=== PATIENT | female | born 1995 | race Caucasian/White ===

== ENCOUNTER 2023-07-10 03:19 | Emergency (ER) | payer OTHER, SELFPAY ==
[2023-07-10 03:21] VITALS: BP 126/88
--- NOTE | 2023-07-10 03:37 | ED.GENMED ---
Addendum entered and electronically signed by Vidal Carrera DO 07/10/23 05:18:
Update patient resting comfortly
States she is feeling better
Original Note:
History of Present Illness
<Marvel Justen SEGUN - Last Filed: 07/10/23 05:01>
General
Chief Complaint: Chest Pain
Source: patient and significant other
Exam Limitations: none
Time Seen by Provider: 07/10/23 03:36
Nursing documentation reviewed up to this point in time: agreed with
Travel History
Have you had any contact with someone who has COVID-19?: No
Do you have any symptoms of coronavirus? Fever > 100 degrees, chills, cough, shortness of breath, sore throat, loss of taste or smell, muscle aches, or headache?: No
History of Present Illness
History of Present Illness:
This is a 27 year old female with a PMH of abortions and anxiety, who reports to the ED c/o CP x couple hours. Pt states she has been very stressed recently since having an 2 weeks ago. Pt states she was drinking alcohol tonight (around 10
shots) and smoke weed and then began having constant CP. She states she had an argument with her partner prior to the pain starting. Her partner also states she passed out briefly and spit up. She states the pain is a constant 4/10 in severity and
occasionally she gets a shooting pain that is a 9/10 in severity. The pain radiates to her left arm. She states since having the , she has not been herself. She lost around 3 'pints' of blood and has been weak, dizzy and unable to walk/talk.
When she stands, she feels as though she is going to pass out. She saw her doctor this morning who recommended a D&C for the residual clots in her uterus, but pt opted to wait until her next period. She denies any jaw pain, n/v, diarrhea,
constipation, fever, stool changes, dysuria, or reflux.
Pt is currently taking iron and potassium pills. She denies any allergies. She drinks alcohol, smokes cigarettes (anywhere up to a pack a day), and smokes weed daily.
Past History
<DAVE Camarillo - Last Filed: 07/10/23 05:01>
Past History
ED Past Medical History: Psychiatric (anxiety) and Other (3 abortions)
ED Past Surgical History: Tonsilectomy and Other (Peritonsillar abscess drainage)
Patient has exhibited threatening behavior?: No
Social History
Tobacco: Smoker
Alcohol: Occasional
Drug: Marijuana (Occasional)
Personal: Single
Living: with family
Employment: Employed (At a restaurant)
Family History
Family History: Other (Father with acute appendicitis otherwise noncontributory)
Review of Systems
<DAVE Camarillo - Last Filed: 07/10/23 05:01>
Review of Systems
Allergies reviewed?: Yes
Other source history: family
Constitutional: Reports chills; Denies fever
EENT: Reports no symptoms
Respiratory: Reports trouble breathing; Denies cough
Cardiac: Reports chest pain, palpitations and syncope
ABD/GI: Reports no symptoms; Denies abdominal pain, nausea, vomiting, diarrhea or constipated
: Reports other (vaginal bleeding); Denies dysuria or bleeding
Musculoskeletal: Reports no symptoms
Skin: Reports no symptoms
Neurological: Reports dizzy and headache
Psychiatric: Reports anxiety
Phy Exam
<DAVE Camarillo - Last Filed: 07/10/23 05:01>
General Physical Exam
General Presentation: mild distress
General age: appears stated age
General Skin: warm and dry
General Habitus: normal
General Mental: alert
General Hydration: appears well hydrated
ENT Exam
ENT Exam: normocephalic
Eye Exam
Eye Exam: PERRL and conjunctiva normal
Cardiovascular Exam
Cardiovascular Exam: regular rate/rhythm, no edema, no murmur and normal peripheral pulses
Heart Sounds: normal
Pulmonary Exam
Pulmonary Exam: lungs clear, no respiratory distress, no rales, no crackles and no wheezing
Oxygen Status: room air
Cough: no cough
Gastrointestinal Exam
Gastrointestinal Exam: normal bowel sounds, non tender, soft and non distended
Palpation: generalized: No tenderness
Auscultation of Abdomen: normal
Neurological Exam
Neurological Exam: alert and oriented x3
Musculoskeletal Exam
Musculoskeletal Exam: full ROM and no edema
Skin Exam
Skin Exam: warm/dry and pallor
Psychiatric Exam
Psychiatric Exam: anxious
Scores
<DAVE Camarillo - Last Filed: 07/10/23 05:01>
Heart Score for Chest Pain Patients
STEMI patient?: Not applicable
Course
<DAVE Camarillo - Last Filed: 07/10/23 05:01>
Orders/Labs/Results
Orders:
Orders
07/10/23 03:38
EKG [Electrocardiogram (*1)] Urgent
Reason for Study: Chest Pain
EKG- Treatment ONCE
07/10/23 04:04
Complete Blood Count/With Diff Urgent
Comprehensive Metabolic Panel Urgent
07/10/23 04:07
Troponin I Urgent
07/10/23 04:16
0.9% Sodium Chloride 1000 ml [Nss] 1,000 ml IV BOLUS
Ketorolac [Toradol] 30 mg IV NOW STA
Abnormal Lab Results
07/10/23
04:04
RBC 3.06 L 10^6/uL
(4.20-5.40)
Hgb 10.1 L g/dL
(12.0-16.0)
Hct 27.6 L %
(37.0-47.0)
MCH 33.0 H pg
(27.0-31.0)
Immature Gran % 0.6 H %
(0-0.5)
Creatinine 0.5 L mg/dL
(0.6-1.0)
07/10/23 04:04
07/10/23 04:04
Vital Signs
Initial and Last Documented VS:
Initial Vital Signs
Temp Pulse Resp BP Pulse Ox
98.5 F 100 17 126/88 98
07/10/23 03:21 07/10/23 03:21 07/10/23 03:21 07/10/23 03:21 07/10/23 03:21
Last Documented Vital Signs
Temp Pulse Resp BP Pulse Ox
98.5 F 100 17 126/88 98
07/10/23 03:21 07/10/23 03:21 07/10/23 03:21 07/10/23 03:21 07/10/23 03:21
<Vidal Carrera, DO - Last Filed: 07/10/23 05:05>
Orders/Labs/Results
Orders:
Orders
07/10/23 03:38
EKG [Electrocardiogram (*1)] Urgent
Reason for Study: Chest Pain
EKG- Treatment ONCE
07/10/23 04:04
Complete Blood Count/With Diff Urgent
Comprehensive Metabolic Panel Urgent
07/10/23 04:07
Troponin I Urgent
07/10/23 04:16
0.9% Sodium Chloride 1000 ml [Nss] 1,000 ml IV BOLUS
Ketorolac [Toradol] 30 mg IV NOW STA
Abnormal Lab Results
07/10/23
04:04
RBC 3.06 L 10^6/uL
(4.20-5.40)
Hgb 10.1 L g/dL
(12.0-16.0)
Hct 27.6 L %
(37.0-47.0)
MCH 33.0 H pg
(27.0-31.0)
Immature Gran % 0.6 H %
(0-0.5)
Creatinine 0.5 L mg/dL
(0.6-1.0)
07/10/23 04:04
07/10/23 04:04
Vital Signs
Initial and Last Documented VS:
Initial Vital Signs
Temp Pulse Resp BP Pulse Ox
98.5 F 100 17 126/88 98
07/10/23 03:21 07/10/23 03:21 07/10/23 03:21 07/10/23 03:21 07/10/23 03:21
Last Documented Vital Signs
Temp Pulse Resp BP Pulse Ox
98.5 F 100 17 126/88 98
07/10/23 03:21 07/10/23 03:21 07/10/23 03:21 07/10/23 03:21 07/10/23 03:21
<DAVE Camarillo - Last Filed: 07/10/23 05:01>
*Critical Care Note
Total Time (30-74mins, 75-104mins- exclusive of procedures): Not Applicable
<Vidal Carrera DO - Last Filed: 07/10/23 05:05>
Update Note
Update Note:
Update labs are noted, patient remained stable
ED Attending Note
<DAVE Camarillo - Last Filed: 07/10/23 05:01>
-
Portions of this chart may have been created with voice recognition software.� Occasional wrong word or��sound alike� substitutions may have occurred due to the inherent limitations of voice recognition software.
<Vidal Carrera DO - Last Filed: 07/10/23 05:05>
ED Attending Note
Patient seen and examined by attending physician: Yes
I performed the substantive portion of visit, reviewed & personally made and approve the management plan that is documented in note by myself or JIMMY.: Yes
ED Attending Note:
Seen with student examined independently 27-year-old female 2 weeks status post medical subsequently had a syncopal event seen at [facility] hemoglobin is 9 discharged to home maira had a panic attack had multiple shots of whiskey a smoke
marijuana some sharp pain, feeling better now she already has a therapist that she is getting set up with her insurance EKG noted no tachypnea or tachycardia
Discharge Plan
Departure
Patient Disposition: Home (Routine Discharge)
Date of Disposition: 07/10/23
Time of Disposition: 05:03
Patient with high blood pressure during this ER visit?: No
Condition: Good
Covid-19: Not Applicable
Discharge Problem:
Panic attack, Chest pain
Instructions: Chest Pain PCP Follow Up
Prescriptions:
New
ibuprofen 600 mg tablet
600 mg PO Q8H PRN (Reason: fever or pain) Qty: 20 0RF
No Action
omeprazole 20 mg Capsule,Delayed Release(Dr/Ec)
20 mg PO DAILY PRN (Reason: GERD)
doxylamine-pyridoxine (vit B6) [Diclegis] 10-10 mg tablet,delayed release (DR/EC)
1 tab PO DAILY Qty: 20 0RF
Rx Instructions:
2 tab PO qhs, then 1 tab PO qAM if vomiting persists
Referrals:
Lenny Alberts MD [Family Provider] - Next open appointment
Interventions
Interventions:
*Risk Screen - Suicide Last Done: 07/10/23 03:21
*General Assessment Last Done: 07/10/23 03:21
*Neglect/Abuse Screening Last Done: 07/10/23 03:21
ED- Fall Risk Assessment Last Done: 07/10/23 03:21
*ED COVID-19 Vaccine History Last Done: 07/10/23 03:21
ED- Cardiac Assessment Last Done: 07/10/23 03:52
[2023-07-10 03:56] VITALS: BMI 19.1
[2023-07-10 04:13] LABS: % Basophils 0.4 % (0-2); % Eosinophils 3.7 % (0-6); % Immature Granulocytes 0.6 % (0-0.5); % Lymphocytes 24.6 % (20.5-51.1); % Monocytes 7.7 % (1.7-9.3); Absolute Eosinophils 0.3 10^3/uL (0-0.7); Absolute Lymphocytes 1.7 10^3/uL (1.2-3.4); Absolute Monocytes 0.5 10^3/uL (0.1-0.6); Absolute Neutrophils 4.4 10^3/uL (1.4-6.5); Hematocrit 27.6 % (37.0-47.0); Hemoglobin 10.1 g/dL (12.0-16.0); Mean Corp Hgb Conc. 36.6 g/dL (33.0-37.0); Mean Corpuscular Volume 90.2 fL (81.0-99.0); Mean Platelet Volume 8.9 fL (7.4-10.4); Nucleated Red Blood Cells % 0 %; Platelet Count 298 10^3/uL (130-400); Red Blood Cell Count 3.06 10^6/uL (4.20-5.40); Red Cell Dist. Width 12.4 % (11.5-14.5)
[2023-07-10] MEDS: TORADOL 30 MG IV (04:30)
[2023-07-10 04:31] LABS: ALT (SGPT) 14 U/L (0-35); AST (SGOT) 24 U/L (14-36); Albumin 4.1 g/dl (3.5-5.0); Alkaline Phosphatase 53 U/L (38-126); Blood Urea Nitrogen 8 mg/dl (7-17); Carbon Dioxide 22 mmol/L (22-30); Chloride 105 mmol/L (98-107); Estimated Creatinine Clearance 114 ml/min; Glucose 91 mg/dl (70-99); Potassium 3.8 mmol/L (3.5-5.1); Sodium 140 mmol/L (135-145); Total Bilirubin 0.7 mg/dl (0.2-1.3); Total Protein 6.9 g/dl (6.3-8.2); eGFR > 60.00
[2023-07-10] MEDS: NSS 1000 IV (04:31)
[2023-07-10 04:42] LABS: Troponin I < 0.012 ng/ml
[2023-07-10 05:00] VITALS: BP 121/80
== END 2023-07-10 05:42 | disposition home or self-care (01) ==
LOC: EMR 03:19
PROVIDERS: EMERGENCY PHYSICIAN Emergency Medicine; FAMILY PHYSICIAN Family Medicine
DX: F41.0 Panic disorder [episodic paroxysmal anxiety] (principal); R07.89 Other chest pain; F41.9 Anxiety disorder, unspecified; F17.210 Nicotine dependence, cigarettes, uncomplicated
CPT/HCPCS: 99284; 96374; 80053; 84484; 85025; 93005

== ENCOUNTER 2024-01-23 15:25 | Emergency (ER) | payer OTHER, SELFPAY ==
[2024-01-23 15:28] VITALS: BP 120/80
[2024-01-23] MEDS: NSS 500 IV (18:31)
[2024-01-23] MEDS: TYLENOL 650 MG PO (18:33)
[2024-01-23 18:34] VITALS: BP 137/79
[2024-01-23 18:36] LABS: % Basophils 0.5 % (0-2); % Eosinophils 4.7 % (0-6); % Immature Granulocytes 0.2 % (0-0.5); % Lymphocytes 25.7 % (20.5-51.1); % Monocytes 8.1 % (1.7-9.3); % Neutrophils 60.8 % (42.2-75.2); Absolute Eosinophils 0.3 10^3/uL (0-0.7); Absolute Lymphocytes 1.7 10^3/uL (1.2-3.4); Absolute Monocytes 0.5 10^3/uL (0.1-0.6); Absolute Neutrophils 4.1 10^3/uL (1.4-6.5); Hematocrit 31.8 % (37.0-47.0); Hemoglobin 11.1 g/dL (12.0-16.0); Mean Corp Hgb Conc. 34.9 g/dL (33.0-37.0); Mean Corpuscular Hgb 29.4 pg (27.0-31.0); Mean Corpuscular Volume 84.4 fL (81.0-99.0); Mean Platelet Volume 9.6 fL (7.4-10.4); Nucleated Red Blood Cells % 0 %; Platelet Count 222 10^3/uL (130-400); Red Blood Cell Count 3.77 10^6/uL (4.20-5.40); White Blood Cell Count 6.7 10^3/uL (4.8-10.8)
[2024-01-23 18:57] LABS: ALT (SGPT) 15 U/L (0-35); AST (SGOT) 37 U/L (14-36); Albumin 4.1 g/dl (3.5-5.0); Alkaline Phosphatase 50 U/L (38-126); Blood Urea Nitrogen 15 mg/dl (7-17); Carbon Dioxide 24 mmol/L (22-30); Chloride 106 mmol/L (98-107); Glucose 102 mg/dl (70-99); Potassium 4.2 mmol/L (3.5-5.1); Sodium 140 mmol/L (135-145); Total Bilirubin 0.8 mg/dl (0.2-1.3); Total Protein 6.5 g/dl (6.3-8.2); eGFR > 60.00
[2024-01-23 19:00] VITALS: BP 123/84; BMI 26.5
[2024-01-23 19:00] LABS: Troponin I < 0.012 ng/ml
--- NOTE | 2024-01-23 19:28 | ED.GENMED ---
History of Present Illness
<Tye Medellin MD, Resident - Last Filed: 01/23/24 19:54>
General
Chief Complaint: Fainting Sensation
Time Seen by Provider: 01/23/24 16:28
History of Present Illness
History of Present Illness:
28-year-old female, Ms. Daniella Concepcion presented to the ER reporting an episode of lightheadedness in the morning today when she was fishing. Patient reports that she felt dizzy for a period of 1-2 hra, accompanied with blurry vision and ringing
sensation in the ears. She felt very tired and has headache with nausea but no vomiting. Patient also reports having chest pain, SOB, palpitations since 2 weeks, occurring intermittently and worse with the physical activity. Patient also reports
that yesterday she had a nosebleed for 2 minutes and it has subsided after she pinched her nose for few minutes. No history of fevers, abdominal pain, bladder/bowel disturbances. Patient reports that she had blood work and EKG done 2 weeks ago by
her primary care physician.
Past History
<Tye Medellin MD, Resident - Last Filed: 01/23/24 19:54>
Past History
ED Past Medical History: Psychiatric (anxiety) and Other (3 abortions)
ED Past Surgical History: Tonsilectomy and Other (Peritonsillar abscess drainage)
Patient has exhibited threatening behavior?: No
Social History
Tobacco: Smoker
Alcohol: Occasional
Drug: Marijuana (Occasional)
Personal: Single
Living: with family
Employment: Employed (At a restaurant)
Family History
Family History: Other (Father with acute appendicitis otherwise noncontributory)
Review of Systems
<Tye Medellin MD, Resident - Last Filed: 01/23/24 19:54>
Review of Systems
All Other Systems: ROS reviewed and negative except as documented in HPI and ROS
Phy Exam
<Tye Medellin MD, Resident - Last Filed: 01/23/24 19:54>
Physical Exam
Physical Exam:
GEN: Well appearing, NAD, WDWN
Eyes: PERRLA, EOMs intact, no scleral icterus
HENT: NCAT, oral mucosa moist, no JVD, no cervical adenopathy.
Lungs: CTAB, no wheezes, rales, rhonchi, normal chest wall excursion
Cardiac: RRR, no M/R/G, no peripheral edema. Radial pulses 2+ bilat
Abdomen: S, NT, ND, NABS, no masses or hepatosplenomegaly
Neuro: AO x 3, no focal deficits to BUE/BLE, normal sensation throughout, cranial nerves II to XII intact.
Skin: No rashes, petechiae. Normal color, no pallor or jaundice.
Psych: Calm, cooperative, proper hygiene
Course
<Tye Medellin MD, Resident - Last Filed: 01/23/24 19:54>
Orders/Labs/Results
Orders:
Orders
01/23/24 15:29
EKG [Electrocardiogram (*1)] Urgent
Reason for Study: Fatigue / Weakness
EKG- Treatment ONCE
01/23/24 17:12
0.9% Sodium Chloride 500 ml [Nss] 500 ml IV BOLUS
Acetaminophen [Tylenol] 650 mg PO NOW STA
01/23/24 17:13
CR Chest - 2 Views Urgent
Comment:
Reason For Exam: chest pain
01/23/24 18:31
Complete Blood Count/With Diff Urgent
Comprehensive Metabolic Panel Urgent
HCG, Serum Qualitative Screen Urgent
Troponin I Urgent
01/23/24 19:47
Add On- LAB Urgent
Tests Added?: hcg
Abnormal Lab Results
01/23/24
18:31
RBC 3.77 L 10^6/uL
(4.20-5.40)
Hgb 11.1 L g/dL
(12.0-16.0)
Hct 31.8 L %
(37.0-47.0)
Glucose 102 H mg/dl
(70-99)
AST 37 H U/L
(14-36)
01/23/24 18:31
01/23/24 18:31
Vital Signs
Initial and Last Documented VS:
Initial Vital Signs
Temp Pulse Resp BP Pulse Ox
98.7 F 92 16 120/80 99
01/23/24 15:28 01/23/24 15:28 01/23/24 15:28 01/23/24 15:28 01/23/24 15:28
Last Documented Vital Signs
Temp Pulse Resp BP Pulse Ox
97.6 F 77 20 121/85 98
01/23/24 20:09 01/23/24 20:09 01/23/24 20:09 01/23/24 20:09 01/23/24 20:20
<Casimiro Ashby MD - Last Filed: 01/23/24 22:18>
Orders/Labs/Results
Orders:
Orders
01/23/24 15:29
EKG [Electrocardiogram (*1)] Urgent
Reason for Study: Fatigue / Weakness
EKG- Treatment ONCE
01/23/24 17:12
0.9% Sodium Chloride 500 ml [Nss] 500 ml IV BOLUS
Acetaminophen [Tylenol] 650 mg PO NOW STA
01/23/24 17:13
CR Chest - 2 Views Urgent
Comment:
Reason For Exam: chest pain
01/23/24 18:31
Complete Blood Count/With Diff Urgent
Comprehensive Metabolic Panel Urgent
HCG, Serum Qualitative Screen Urgent
Troponin I Urgent
01/23/24 19:47
Add On- LAB Urgent
Tests Added?: hcg
Abnormal Lab Results
01/23/24
18:31
RBC 3.77 L 10^6/uL
(4.20-5.40)
Hgb 11.1 L g/dL
(12.0-16.0)
Hct 31.8 L %
(37.0-47.0)
Glucose 102 H mg/dl
(70-99)
AST 37 H U/L
(14-36)
01/23/24 18:31
01/23/24 18:31
Vital Signs
Initial and Last Documented VS:
Initial Vital Signs
Temp Pulse Resp BP Pulse Ox
98.7 F 92 16 120/80 99
01/23/24 15:28 01/23/24 15:28 01/23/24 15:28 01/23/24 15:28 01/23/24 15:28
Last Documented Vital Signs
Temp Pulse Resp BP Pulse Ox
97.6 F 77 20 121/85 98
01/23/24 20:09 01/23/24 20:09 01/23/24 20:09 01/23/24 20:09 01/23/24 20:20
<Tye Medellin MD, Resident - Last Filed: 01/23/24 19:54>
MDM/Problems Addressed
Differential Diagnosis Includes:
Lightheadedness possibly due to dehydration versus anemia
MDM/Problems Addressed:
IV fluids
CBC CMP unremarkable (except anemia at hemoglobin 11.1)
Troponins negative
Pain control with Tylenol
Patient's vitals are stable
Patient is stable to be discharged home.
<Tye Medellin MD, Resident - Last Filed: 01/23/24 19:54>
*Critical Care Note
Total Time (30-74mins, 75-104mins- exclusive of procedures): Not Applicable
ED Attending Note
<Tye Medellin MD, Resident - Last Filed: 01/23/24 19:54>
-
Portions of this chart may have been created with voice recognition software.� Occasional wrong word or��sound alike� substitutions may have occurred due to the inherent limitations of voice recognition software.
<Casimiro Ashby MD - Last Filed: 01/23/24 22:18>
ED Attending Note
ED Attending Note:
Patient hemodynamically stable. Workup reassuring. Hemoglobin is slightly low however it is increased from prior in July. She demonstrates some evidence of symptomatic anemia so we will start her on iron.
Discharge Plan
Departure
Patient Disposition: Home (Routine Discharge)
Date of Disposition: 01/23/24
Time of Disposition: 19:47
Patient with high blood pressure during this ER visit?: No
Discharge Problem:
Lightheadedness, Anemia
Instructions: Anemia caused by low iron, Syncope (fainting)
Prescriptions:
New
ferrous sulfate [iron] 325 mg (65 mg iron) tablet
325 mg PO DAILY Qty: 30 0RF
No Action
omeprazole 20 mg Capsule,Delayed Release(Dr/Ec)
20 mg PO DAILY PRN (Reason: GERD)
doxylamine-pyridoxine (vit B6) [Diclegis] 10-10 mg tablet,delayed release (DR/EC)
1 tab PO DAILY Qty: 20 0RF
Rx Instructions:
2 tab PO qhs, then 1 tab PO qAM if vomiting persists
ibuprofen 600 mg tablet
600 mg PO Q8H PRN (Reason: fever or pain) Qty: 20 0RF
Referrals:
Lenny Alberts MD [Family Provider] -
Activity Restrictions/Additional Instructions:
Advised to follow-up with primary care within a week.
Advised follow-up with crm marketing executive if patient experiences chest pain, palpitations.
Interventions
Interventions:
*Risk Screen - Suicide Last Done: 01/23/24 19:30
*General Assessment Last Done: 01/23/24 19:30
*Neglect/Abuse Screening Last Done: 01/23/24 19:30
ED- Fall Risk Assessment Last Done: 01/23/24 19:30
*ED COVID-19 Vaccine History Last Done: 01/23/24 19:30
*Nursing Disposition Last Done: 01/23/24 20:20
ED- Cardiac Assessment Last Done: 01/23/24 19:30
ED- Neurological Assessment Last Done: 01/23/24 19:30
Discharge Date and Time
Discharge Date/Time: 01/23/24 19:30
Print Language: ITALIAN
[2024-01-23 20:00] VITALS: BP 121/85
[2024-01-23 20:09] VITALS: BP 121/85
[2024-01-23 20:27] LABS: HCG, Serum Qualitative Screen Negative
== END 2024-01-23 19:30 | disposition home or self-care (01) ==
LOC: EMR 15:25
PROVIDERS: Student in an Organized Health Care Education/Training Program; EMERGENCY PHYSICIAN Emergency Medicine; FAMILY PHYSICIAN Family Medicine
DX: R42 Dizziness and giddiness (principal); D64.9 Anemia, unspecified; F17.200 Nicotine dependence, unspecified, uncomplicated
CPT/HCPCS: 99283; 71046; 80053; 84484; 84703; 85025; 93005

== ENCOUNTER 2024-07-16 18:36 | Emergency (ER) | payer OTHER, SELFPAY ==
[2024-07-16 18:38] VITALS: BP 124/86
[2024-07-16 18:51] LABS: % Basophils 0.5 % (0-2); % Eosinophils 7.6 % (0-6); % Immature Granulocytes 0.3 % (0-0.5); % Lymphocytes 30.3 % (20.5-51.1); % Monocytes 7.8 % (1.7-9.3); % Neutrophils 53.5 % (42.2-75.2); Absolute Eosinophils 0.6 10^3/uL (0-0.7); Absolute Lymphocytes 2.2 10^3/uL (1.2-3.4); Absolute Monocytes 0.6 10^3/uL (0.1-0.6); Hemoglobin 12.9 g/dL (12.0-16.0); Mean Corp Hgb Conc. 35.8 g/dL (33.0-37.0); Mean Corpuscular Hgb 33.6 pg (27.0-31.0); Mean Corpuscular Volume 93.8 fL (81.0-99.0); Mean Platelet Volume 9.7 fL (7.4-10.4); Nucleated Red Blood Cells % 0 %; Platelet Count 192 10^3/uL (130-400); Red Blood Cell Count 3.84 10^6/uL (4.20-5.40); Red Cell Dist. Width 11.9 % (11.5-14.5); White Blood Cell Count 7.4 10^3/uL (4.8-10.8)
[2024-07-16 19:07] LABS: ALT (SGPT) 17 U/L (0-35); AST (SGOT) 25 U/L (14-36); Albumin 4.3 g/dl (3.5-5.0); Alkaline Phosphatase 53 U/L (38-126); Blood Urea Nitrogen 15 mg/dl (7-17); Calcium 8.9 mg/dl (8.4-10.2); Carbon Dioxide 27 mmol/L (22-30); Chloride 102 mmol/L (98-107); Glucose 102 mg/dl (70-99); Potassium 3.9 mmol/L (3.5-5.1); Sodium 136 mmol/L (135-145); Total Bilirubin 1.2 mg/dl (0.2-1.3); Total Protein 6.8 g/dl (6.3-8.2); eGFR > 60.00
[2024-07-16 21:01] VITALS: BP 117/72
--- NOTE | 2024-07-16 21:17 | ED.GENMED ---
History of Present Illness
General
Chief Complaint: Breathing Problem
Time Seen by Provider: 07/16/24 21:06
History of Present Illness
History of Present Illness:
Patient is a 28-year-old woman with history of anxiety presenting to the emergency department with shortness of breath. Patient states that she has been having a lot of stress lately. She states that she started to get anxiety and had a panic
attack yesterday. During the episode she started to breathe fast and developed vague midsternal chest pain as well as difficulty catching her breath. During the event she did have some pain and numbness tingling to her extremities. That has since
resolved. Patient does have some mild chest pain right now that has been ongoing since he panic attack yesterday. No exertional chest pain. No family history of cardiac disease. She does state that she supposed to see a travel manager in the
coming few weeks as she was advised to for an abnormal EKG. It is unclear as to what was abnormal about her prior EKG. She denies any lightheadedness dizziness. She did recently get her period. Denies any headache. She is not currently on any
medications for her anxiety. She does state that she received a list of therapists that are local to her. She will call them tomorrow. She denies any SI or HI.
Past History
Past History
ED Past Medical History: Psychiatric (anxiety) and Other (3 abortions)
ED Past Surgical History: Tonsilectomy and Other (Peritonsillar abscess drainage)
Patient has exhibited threatening behavior?: No
Social History
Tobacco: Smoker
Alcohol: Occasional
Drug: Marijuana (Occasional)
Personal: Single
Living: with family
Employment: Employed (At a restaurant)
Family History
Family History: Other (Father with acute appendicitis otherwise noncontributory)
Phy Exam
Physical Exam
Physical Exam:
GENERAL: in no acute distress
HEENT: normocephalic, extraocular movements intact, moist oral mucosa
NECK: normal inspection
RESPIRATORY: no respiratory distress, clear to auscultation bilaterally
CARDIOVASCULAR: regular rate and rhythm, 2+ radial pulses bilaterally
ABDOMEN/: soft, non-distended, non-tender to palpation, no rebound or guarding
EXTREMITIES: non-tender, no edema/swelling
NEUROLOGIC: awake and alert, moves all extremities
SKIN: warm
Course
Orders/Labs/Results
Orders:
Orders
07/16/24 18:39
CR Chest - 2 Views Urgent
Comment:
Reason For Exam: respiratory distress
07/16/24 18:42
Complete Blood Count/With Diff Urgent
Comprehensive Metabolic Panel Urgent
07/16/24 21:16
Electrocardiogram (*1) Urgent
Reason for Study: Chest Pain
EKG- Treatment ONCE
Abnormal Lab Results
07/16/24
18:42
RBC 3.84 L 10^6/uL
(4.20-5.40)
Hct 36.0 L %
(37.0-47.0)
MCH 33.6 H pg
(27.0-31.0)
Eosinophils % 7.6 H %
(0-6)
Glucose 102 H mg/dl
(70-99)
07/16/24 18:42
07/16/24 18:42
Vital Signs
Initial and Last Documented VS:
Initial Vital Signs
Temp Pulse Resp BP Pulse Ox
97.5 F 83 16 124/86 98
07/16/24 18:38 07/16/24 18:38 07/16/24 18:38 07/16/24 18:38 07/16/24 18:38
Last Documented Vital Signs
Temp Pulse Resp BP Pulse Ox
97.5 F 75 18 117/72 96
07/16/24 18:38 07/16/24 21:01 07/16/24 21:01 07/16/24 21:01 07/16/24 21:01
MDM/Problems Addressed
Differential Diagnosis Includes:
Patient is a 28-year-old woman with history of anxiety presenting to the emergency department with shortness of breath in the setting of stress and a panic attack. Vitals are unremarkable and exam is reassuring. Likely consistent with panic
attack/anxiety. Considered PE though patient does not have any risk factors and vital signs are normal and she is asymptomatic currently. Considered atypical ACS however patient is young and otherwise healthy with no family history. She does have
a prior abnormal EKGs will repeat EKG here today. Blood work was obtained prior to my evaluation which is unremarkable. Chest x-ray per my interpretation with no widened mediastinum and no pneumothorax. Will start patient on hydroxyzine for her
anxiety/panic attacks.
*Critical Care Note
Total Time (30-74mins, 75-104mins- exclusive of procedures): Not Applicable
Update Note
Update Note:
EKG with incomplete right bundle branch block. This is similar to prior EKG from last year. Will discharge patient at this time with outpatient follow-up.
ED Attending Note
-
Portions of this chart may have been created with voice recognition software.� Occasional wrong word or��sound alike� substitutions may have occurred due to the inherent limitations of voice recognition software.
Discharge Plan
Departure
Patient Disposition: Home (Routine Discharge)
Date of Disposition: 07/16/24
Time of Disposition: 21:38
Patient with high blood pressure during this ER visit?: No
Discharge Problem:
Anxiety
Instructions: Panic Attack ED, Anxiety in adults - ED discharge instructions
Prescriptions:
New
hydroxyzine HCl 10 mg tablet
10 mg PO TID PRN (Reason: hydroxyzine) Qty: 30 0RF
Rx Instructions:
do not drive after taking medication
No Action
omeprazole 20 mg Capsule,Delayed Release(Dr/Ec)
20 mg PO DAILY PRN (Reason: GERD)
doxylamine-pyridoxine (vit B6) [Diclegis] 10-10 mg tablet,delayed release (DR/EC)
1 tab PO DAILY Qty: 20 0RF
Rx Instructions:
2 tab PO qhs, then 1 tab PO qAM if vomiting persists
ibuprofen 600 mg tablet
600 mg PO Q8H PRN (Reason: fever or pain) Qty: 20 0RF
ferrous sulfate [iron] 325 mg (65 mg iron) tablet
325 mg PO DAILY Qty: 30 0RF
Interventions
Interventions:
*Risk Screen - Suicide Last Done: 07/16/24 18:38
*General Assessment Last Done: 07/16/24 18:38
*Neglect/Abuse Screening Last Done: 07/16/24 18:38
*ED COVID-19 Vaccine History Last Done: 07/16/24 18:38
ED- Pulmonary Assessment Last Done: 07/16/24 21:07
Discharge Date and Time
Print Language: FAROESE
[2024-07-16] MEDS: ATARAX 10 MG PO (21:52)
== END 2024-07-16 22:08 | disposition home or self-care (01) ==
LOC: EMR 18:36
PROVIDERS: Student in an Organized Health Care Education/Training Program; EMERGENCY PHYSICIAN Student in an Organized Health Care Education/Training Program; FAMILY PHYSICIAN Family Medicine
DX: F41.9 Anxiety disorder, unspecified (principal); F17.200 Nicotine dependence, unspecified, uncomplicated
CPT/HCPCS: 99285; 71046; 80053; 85025; 93005